=== PATIENT | male | born 1965 | race African-American/Black ===

== ENCOUNTER 2019-04-08 21:14 | Inpatient (IN) | payer MEDICARE ==
[~2019-04-08] VITALS: Ht 175.3 cm; Wt 115.7 kg
[2019-04-08] MEDS ORDERED: GLUCOPHAGE500 MG/TAB PO (21:29)
[2019-04-08] MEDS ORDERED: LASIX 20MG TABL20 MG PO (21:29)
[2019-04-08 22:05] LABS: BASO % 0.3 % (0.0-2.0); EOS # 0.1 (0.0-0.7); EOS % 0.6 % (0-4.0); GRAN % 75.2 % (42.2-75.2); HEMATOCRIT 24.8 % (42.0-52.0); LYMPH # 1.6 (1.2-3.4); LYMPH % 17.3 % (20.0-51.0); MEAN CELL VOLUME 84 fl (80.0-100.0); MEAN CORPUSCULAR HEMOGLOBIN 27 pg (27.0-31.0); MEAN CORPUSCULAR HGB CONC 32 g/dl (33.0-37.0); MEAN PLATELET VOLUME 9.1 fl (7.4-10.4); MONO # 0.6 (0.1-0.6); PLATELET COUNT 408 K/mm3 (130-400); RED BLOOD COUNT 2.97 M/mm3 (4.20-5.60); REDCELL DISTRIBUTION WIDTH-CV 17.3 % (11.5-14.5)
[2019-04-08 22:07] LABS: ARTERIAL BLOOD GAS BASE EXCESS -6.6 (-2-2); ARTERIAL BLOOD GAS HCO3 17.2 meq/L (22-26); ARTERIAL BLOOD GAS PCO2 28.3 mmHg (35-45); ARTERIAL BLOOD GAS PO2 59.6 mmHg (80-100)
[2019-04-08 22:08] LABS: ARTERIAL BLD GAS O2 SATURATION 87.5 % (92-100)
[2019-04-08 22:11] LABS: INR 1.1 (0.8-3.0); PROTHROMBIN TIME 13.4 SECONDS (9.7-12.8)
[2019-04-08 22:19] LABS: ALANINE AMINOTRANSFERASE 31 U/L (21-72); ALBUMIN 3.2 gm/dL (3.5-5.0); ALKALINE PHOSPHATASE 169 U/L (50-136); ANION GAP 12 mmol/L (7-16); AST,SGOT 30 U/L (15-37); BILIRUBIN,TOTAL 1.1 mg/dL (0.0-1.0); BLOOD UREA NITROGEN 67 mg/dL (9-20); C-REACTIVE PROTEIN 2.9 mg/dL (0.0-0.9); CALCIUM 7.6 mg/dL (8.4-10.2); CARBON DIOXIDE 16 mmol/L (22-30); CHLORIDE 107 mmol/L (98-107); GLUCOSE 163 mg/dL (74-106); LIPASE 41 U/L (23-300); MAGNESIUM 2.7 mg/dL (1.6-2.3); PHOSPHOROUS 6.1 mg/dL (2.5-4.5); POTASSIUM 4.9 mmol/L (3.4-5.0); SODIUM 135 mmol/L (137-145); TOTAL PROTEIN 6.8 gm/dL (6.4-8.2)
[2019-04-08 22:22] LABS: CREATININE, serum 4.41 (0.66-1.25)
[2019-04-08] MEDS ORDERED: TYLENOL 325MG325 MG PO (22:22)
[2019-04-08] MEDS ORDERED: ASPIRIN 81M81 MG/TA2 PO (22:23)
[2019-04-08] MEDS ORDERED: CULTURELLE10 Billion (22:23)
[2019-04-08] MEDS ORDERED: IRON TABLETS325 MG PO (22:24)
[2019-04-08] MEDS ORDERED: ELIQUIS 5MG PO (22:24)
[2019-04-08] MEDS ORDERED: FOLIC ACID 11 MG/TA1 PO (22:24)
[2019-04-08] MEDS ORDERED: HEPARIN SOD5000 U/ML SQ (22:25)
[2019-04-08] MEDS ORDERED: GLUCAGON EMERGEN1 M1 SQ (22:25)
[2019-04-08] MEDS ORDERED: GLUTOSE 1515 GM PO (22:25)
[2019-04-08] MEDS ORDERED: INSLANT SQ (22:26)
[2019-04-08] MEDS ORDERED: APRESOLINE50 MG PO (22:26)
[2019-04-08] MEDS ORDERED: HUMALOG100 U/ML SQ (22:27)
[2019-04-08] MEDS ORDERED: TOPROL XL 50MG50 MG PO (22:28)
[2019-04-08] MEDS ORDERED: ISORDIL 20MG20 M1 PO (22:28)
[2019-04-08] MEDS ORDERED: MULTIPLE VITAMI1 CAP PO (22:29)
[2019-04-08] MEDS ORDERED: GOOD NEIGH1200 MG/15 (22:29)
[2019-04-08 22:30] LABS: TROPONIN-I < 0.012 ng/mL (0.000-0.035)
[2019-04-08] MEDS ORDERED: MIRALAX119G PO (22:30)
[2019-04-08] MEDS ORDERED: SENNA-LAX8.6 MG PO (22:30)
[2019-04-08] MEDS ORDERED: ZOFRAN ODT4 MG PO (22:31)
[2019-04-08] MEDS ORDERED: VITAMIN C500 MG PO (22:31)
[2019-04-08] MEDS ORDERED: SILVER NITRATE TOP (22:31)
[2019-04-09] VITALS (753 sets, daily range): BP systolic 116–151; BP diastolic 78–100; PULSE 59–75; TEMP 97.8–98.2; O2SAT 80–100
--- NOTE | 2019-04-09 00:17 | NUR ---
Arrived to the unit via stretcher. Patient short of breath but does not appear to be in distress. Able to tolarate answer questions in short sentances. Called RT to bring BIPAP at this time.
[2019-04-09 00:29] LABS: COLLECTION METHOD CLEAN CATCH
--- NOTE | 2019-04-09 00:30 | NUR ---
Bilateral legs extremeley edematous with taught skin. Skin is extremely scaly and flaky. A foul odor is also noted coming from feet and legs. Some bloody drainage is noted on bed sheets under legs. Right foot is larger than the left. Skin texture is almost elephantine. Hospitalist stated could leave legs open to air. Patient denies any pain and states his legs do not cause him any discomfort.
[2019-04-09 00:45] LABS: MUCOUS Present /lpf; PH 5 (5-8); SQUAMOUS EPITHELIAL None Seen /hpf; URINE APPEARANCE Hazy; URINE BACTERIA None Seen /hpf; URINE BILIRUBIN Negative (NEGATIVE); URINE BLOOD Negative (NEGATIVE); URINE COLOR Yellow; URINE GLUCOSE 1+ (NEGATIVE); URINE KETONE Negative (NEGATIVE); URINE LEUKOCYTE ESTERASE Negative (NEGATIVE); URINE NITRATE Negative (NEGATIVE); URINE PROTEIN(semi-quant) 3+ (NEGATIVE); URINE RBC 0-2 /hpf; URINE UROBILINOGEN Negative (NEGATIVE)
[2019-04-09] MEDS ORDERED: LOPRESSOR 550 MG/TAB PO (01:02)
[2019-04-09] MEDS ORDERED: NORVASC 5MG5 MG/TAB PO (01:03)
[2019-04-09] MEDS ORDERED: LASIX 80MG TABL80 MG PO (01:04)
[2019-04-09] MEDS ORDERED: PRINIVIL40 MG PO (01:05)
[2019-04-09] MEDS ORDERED: NEURONTIN300 MG/CAP PO (01:06)
[2019-04-09 03:25] LABS: ARTERIAL BLD GAS O2 SATURATION 96.3 % (92-100); ARTERIAL BLOOD GAS BASE EXCESS -8.1 (-2-2); ARTERIAL BLOOD GAS HCO3 16.9 meq/L (22-26); ARTERIAL BLOOD GAS PCO2 32.6 mmHg (35-45); ARTERIAL BLOOD GAS pH 7.33 (7.35-7.45)
--- NOTE | 2019-04-09 04:10 | NUR ---
Tolerating BIPAP well; sleeps between disturbances. Denies any pain at this time. Will continue to monitor.
[2019-04-09 07:44] LABS: ARTERIAL BLOOD GAS PCO2 32.9 mmHg (35-45); ARTERIAL BLOOD GAS pH 7.36 (7.35-7.45)
[2019-04-09 07:45] LABS: ARTERIAL BLD GAS O2 SATURATION 96.2 % (92-100); ARTERIAL BLOOD GAS BASE EXCESS -6.4 (-2-2); ARTERIAL BLOOD GAS HCO3 18.3 meq/L (22-26); ARTERIAL BLOOD GAS PO2 93.8 mmHg (80-100)
--- NOTE | 2019-04-09 07:45 | NUR ---
Bedside report recieved from KAYLEE Mercedes. Patient sleeping with BiPap in place. Wakes to verbal stimuli. Peripheral INT IV to right shoulder uncomplicated. Joseph catheter with positive peach UO noted. Patient with BLE wounds and purulent spots of drainage x2. Bed in low and locked position, call light within reach, rails up x2. Care assumed at this time.
[2019-04-09 07:47] LABS: BASO % 0.4 % (0.0-2.0); EOS # 0.1 (0.0-0.7); EOS % 1.6 % (0-4.0); GRAN # 5.7 (1.4-6.5); GRAN % 72.1 % (42.2-75.2); LYMPH # 1.4 (1.2-3.4); LYMPH % 17.8 % (20.0-51.0); MEAN CELL VOLUME 84 fl (80.0-100.0); MEAN CORPUSCULAR HGB CONC 33 g/dl (33.0-37.0); MEAN PLATELET VOLUME 8.8 fl (7.4-10.4); MONO # 0.6 (0.1-0.6); MONO % 7.6 % (1.7-9.3); PLATELET COUNT 363 K/mm3 (130-400); RED BLOOD COUNT 2.72 M/mm3 (4.20-5.60); REDCELL DISTRIBUTION WIDTH-CV 17.2 % (11.5-14.5)
[2019-04-09 07:50] LABS: HEMATOCRIT 22.8 % (42.0-52.0); HEMOGLOBIN 7.4 g/dl (13.5-18.0); MEAN CORPUSCULAR HEMOGLOBIN 27 pg (27.0-31.0)
[2019-04-09 07:52] LABS: CALCIUM 7.5 mg/dL (8.4-10.2); POTASSIUM 4.5 mmol/L (3.4-5.0)
[2019-04-09 07:53] LABS: CREATININE, serum 4.39 (0.66-1.25)
--- NOTE | 2019-04-09 09:40 | NUR ---
Dr. Teresa notified of consult.
--- NOTE | 2019-04-09 09:45 | NUR ---
Dr. Zhang rounds at this time. Orders as entered CPOE.
--- NOTE | 2019-04-09 09:56 | NUR ---
Dr. Hameed notified of consult. Labs, assessment and vitals provided as requested by . No new orders recieved.
--- NOTE | 2019-04-09 09:57 | NUR ---
Ortho paged and call back number left.
--- NOTE | 2019-04-09 10:00 | NUR ---
GAVINO Reeder returns page and is notified of ortho consult. States he will be in today.
--- NOTE | 2019-04-09 10:00 | NUR ---
Dr. Chowdhury rounds on patient at this time. Orders as entered CPOE.
--- NOTE | 2019-04-09 10:17 | NUR ---
Dr. Stauffer rounds at this time. Orders as entered CPOE.
--- NOTE | 2019-04-09 11:19 | NUR ---
GAVINO Flores rounds at this time. VORB for simple dressing to BLE for drainage management.
--- NOTE | 2019-04-09 11:25 | NUR ---
Dr. Zhang, Dr. Meza, and GAVINO Flores meet with patient, son, daughters x2 and son in law. Patient POC is discussed at length to include conservative management of suspected Charcot's foot (RLE), agressive management of CHF exacerbation and renal dysfunction. Goal to return home to [place] to follow with established orthopedic care is agreed upon by all. Will continue to monitor.
--- NOTE | 2019-04-09 13:24 | NUR ---
Right shoulder peripheral IV infiltrates at start of IV ABX as charted in JAN. ABX stopped and disconnected. IV removed.
[2019-04-10] VITALS (459 sets, daily range): BP systolic 96–135; BP diastolic 66–89; PULSE 58–75; TEMP 97.4–98.5; O2SAT 56–100
[2019-04-10 05:26] LABS: BASO % 0.2 % (0.0-2.0); EOS # 0.2 (0.0-0.7); EOS % 2.3 % (0-4.0); GRAN # 6.4 (1.4-6.5); LYMPH # 1.1 (1.2-3.4); LYMPH % 13.4 % (20.0-51.0); MEAN CELL VOLUME 86 fl (80.0-100.0); MEAN CORPUSCULAR HGB CONC 31 g/dl (33.0-37.0); MEAN PLATELET VOLUME 8.6 fl (7.4-10.4); MONO # 0.6 (0.1-0.6); MONO % 6.6 % (1.7-9.3); PLATELET COUNT 342 K/mm3 (130-400); RED BLOOD COUNT 2.43 M/mm3 (4.20-5.60); REDCELL DISTRIBUTION WIDTH-CV 17.1 % (11.5-14.5)
[2019-04-10 05:30] LABS: HEMOGLOBIN 6.5 g/dl (13.5-18.0); MEAN CORPUSCULAR HEMOGLOBIN 27 pg (27.0-31.0)
--- NOTE | 2019-04-10 05:35 | NUR ---
CRITICAL LAB OF [facility] 6.5 REPORTED TO [facility].
[2019-04-10 05:38] LABS: CALCIUM 7.2 mg/dL (8.4-10.2); CHOLESTEROL RISK RATIO 4.5; POTASSIUM 4.3 mmol/L (3.4-5.0)
[2019-04-10 05:39] LABS: CREATININE, serum 4.64 (0.66-1.25)
[2019-04-10 05:48] LABS: IRON,SERUM 18 ug/dL (35-150)
[2019-04-10 05:57] LABS: TOTAL IRON BINDING CAPACITY 238 ug/dL (261-462)
[2019-04-10 06:24] LABS: FERRITIN 112 ng/mL (18-464)
--- NOTE | 2019-04-10 06:51 | NUR ---
0500 - DRESSING CHANGED ON RLE, 3 OPEN WOUNDS NOTED WITH PUS-LIKE FLUID COMING OUT. CLEANSED WITH STERILE WATER AND WRAP WITH GAUZE AND KERLIX. NOW CDI.
[2019-04-10 08:00] LABS: TOTAL PROTEIN 5.8 gm/dL (6.4-8.2)
--- NOTE | 2019-04-10 08:00 | NUR ---
Shift assessment complete at this time. Plan of care reviewed at bedside with patient. Additional time taken to address any other needs or concerns. Pt denies pain or any other discomfort. Vitals stable at this time as well. Bed in low position, call light within reach, will continue to monitor.
[2019-04-10 08:55] LABS: INR 1.2 (0.8-3.0); PROTHROMBIN TIME 13.7 SECONDS (9.7-12.8)
--- NOTE | 2019-04-10 10:00 | NUR ---
I/O documented pleural output was from bedside thoracentesis.
--- NOTE | 2019-04-10 10:14 | NUR ---
SW attended clinical rounds to discuss discharge planning. Patient is visiting from [place] to attend his daughter's wedding. Patient normally lives independenlty at home in [place]. Patient's PCP and preferred pharmacy are also in [place]. Patient reports he regularly fills his medications and takes them as prescribed. Patient uses a cane for ambulation but no other DME is reported. Patient reports he does not use home health services. Patient does have a DPOA. SW does not anticipate any discharge needs but will follow as needed.
[2019-04-10 10:19] LABS: PLEURAL FLUID APPEARANCE CLEAR; PLEURAL FLUID COLOR YELLOW
[2019-04-10 10:32] LABS: GLUCOSE,PLEURAL FLUID 108 mg/dL; PLEURAL FLUID RBC 3000 /mm3 (0-0); PLEURAL FLUID WBC 387 /mm3
[2019-04-10 10:33] LABS: TOTAL PROTEIN,PLEURAL FLUID < 2.0 gm/dL
--- NOTE | 2019-04-10 13:20 | NUR ---
Pt transferred up to Medical bed 305 from ICU bed 4. Pt transferred on oxygen support of 2L and by bed. Pt tolerated transfer well with no complaints or concerns raised to nursing staff.
--- NOTE | 2019-04-10 13:30 | NUR ---
Pt arrived to room 305 at this time. He is a pleasant A/O x3 gentleman. His breathing is even and unlabored on 2L O2 via NC. Pt denies SOB. Fine crackles to BLL and diminished sounds throughout. No pain at this time. Pt reports that he does have feeling to BLE. Both shins wrapped, small amount of drainage to RLE. 3+ edema BLE and crusting. HR regular, no murmur noted. +BS, abdomen soft and nontender. Joseph DD, clear yellow urine. First unit of blood completing at this time. Pt tolerating transfusion without complications. Pt denies needs at this time. Call light within reach. Isolation precautions in place. Will continue to monitor.
[2019-04-10 14:43] LABS: URINE PROTEIN:CREAT RATIO 8.48 (0.00-0.14)
--- NOTE | 2019-04-10 16:45 | NUR ---
Dressing to RLE changed, small amount of bloody/yellow drainage on prior dressing. 4X4 and kirlex applied, pt tolerated well. He denies any pain. No needs at this time. Call light within reach.
[2019-04-10 19:48] LABS: COMPLEMENT-C3 99 mg/dL (79-152); COMPLEMENT-C4 32 mg/dL (18-55)
--- NOTE | 2019-04-10 22:18 | NUR ---
Alert and oriented x 4 and able to make needs known. Denies having pain and discomfort. Double lumen PICC to RUE. Each lumen flushed with NS per protocol without any problems. Dressing to area is CDI. Site is without redness, warmth, swelling,a nd pain. APRIL to RUE. LS Coarse in upper lobes, diminished in lower lobes. Denies SOB and dyspnea, except with exertion. Denies cough. Wears oxygen at 4 L/min via NC. Has BIPAP on at this time. HRR. BSAx4. Indwelling valdez catheter is patient, and draining clear yellow urine via dependent drainage. 4+ edema to BLE. Dressings to wounds on BLE are CDI. Scaling/flaking to bilateral feet. Resting in bed watching TV at this time. Son at bedside at this time. Voices no needs or concerns. Call light is within reach.
[2019-04-11] VITALS (12 sets, daily range): BP systolic 115–152; BP diastolic 7–70; PULSE 65–79; TEMP 97.4–98.4
--- NOTE | 2019-04-11 03:33 | NUR ---
Continues to wear BIPAP at night. Denies having pain, discomfort, SOB, and dyspnea. Received ABXs per orders to PICC to RUE. Nitro paste to right chest. Dressings to BLE continue to be CDI. Resting in bed with eyes closed at this time. Call light is within reach.
[2019-04-11 05:54] LABS: BASO % 0.3 % (0.0-2.0); EOS # 0.2 (0.0-0.7); EOS % 2.7 % (0-4.0); GRAN % 77.3 % (42.2-75.2); LYMPH % 12.2 % (20.0-51.0); MEAN CELL VOLUME 87 fl (80.0-100.0); MEAN CORPUSCULAR HGB CONC 31 g/dl (33.0-37.0); MEAN PLATELET VOLUME 8.8 fl (7.4-10.4); MONO # 0.6 (0.1-0.6); MONO % 7.1 % (1.7-9.3); PLATELET COUNT 326 K/mm3 (130-400); RED BLOOD COUNT 2.46 M/mm3 (4.20-5.60); REDCELL DISTRIBUTION WIDTH-CV 16.7 % (11.5-14.5)
[2019-04-11 05:57] LABS: HEMATOCRIT 21.4 % (42.0-52.0); HEMOGLOBIN 6.6 g/dl (13.5-18.0); MEAN CORPUSCULAR HEMOGLOBIN 27 pg (27.0-31.0)
[2019-04-11 06:05] LABS: CALCIUM 6.9 mg/dL (8.4-10.2); POTASSIUM 3.8 mmol/L (3.4-5.0)
[2019-04-11 06:07] LABS: CREATININE, serum 4.8 (0.66-1.25)
--- NOTE | 2019-04-11 06:18 | NUR ---
Patient's hemoglobin 6.6. Called to nurse practioner at 0600. New order received to check hemoccult and 1 unit of blood was ordered. Orders put in by [employer]IAISON.
--- NOTE | 2019-04-11 06:59 | NUR ---
Report given to first shift nurse.
--- NOTE | 2019-04-11 08:10 | NUR ---
FIRST UNIT PRBC STARTED. CONSENT SIGNED AND ON CHART. WILL REMAIN AT BEDSIDE FOR FIRST 15 MIN. INFUSION RATE STARTED AT 60ML/HR. INCREASED O2 TO 3L/NC DUE TO SATS IN UPPER 80'S.
--- NOTE | 2019-04-11 11:06 | NUR ---
Blood complete at this time. Pt tolerated transfusion without any issues. VSS. Pt able to have a large light brown BM. Pt denies any needs at this time. Call light within reach.
--- NOTE | 2019-04-11 12:17 | NUR ---
PT AWAKENED AFTER BEING ON BI-PAP AT NIGHT. DENIES ANY C/O. SKIN VERY DRY AND SCALY. RLE APPEARS NECROTIC BELOW KNEE TO TOES. OPEN ULCER ON HERNADEZ AREA X2. DRAINING SMALL AMOUNT. DRESSING INTACT WITH SMALL DRAINAGE NOTED. LLE WITH DRESSING INTACT. SEVERAL FLUID FILLED BLISTERS THAT ARE NOT OPEN. TOPETE DRAINING CLEAR, YELLOW URINE. O2 ON AT 2L/NC WITH SATS IN UPPER 80'S TO 90-91.
[2019-04-11 15:41] LABS: BASO % 0.3 % (0.0-2.0); EOS # 0.2 (0.0-0.7); EOS % 1.7 % (0-4.0); GRAN # 7.3 (1.4-6.5); GRAN % 80.1 % (42.2-75.2); LYMPH % 10.5 % (20.0-51.0); MEAN CELL VOLUME 86 fl (80.0-100.0); MEAN CORPUSCULAR HGB CONC 32 g/dl (33.0-37.0); MEAN PLATELET VOLUME 8.3 fl (7.4-10.4); MONO # 0.6 (0.1-0.6); PLATELET COUNT 287 K/mm3 (130-400); REDCELL DISTRIBUTION WIDTH-CV 16.7 % (11.5-14.5)
[2019-04-11 15:43] LABS: HEMATOCRIT 23.3 % (42.0-52.0); HEMOGLOBIN 7.4 g/dl (13.5-18.0); MEAN CORPUSCULAR HEMOGLOBIN 27 pg (27.0-31.0)
--- NOTE | 2019-04-11 17:44 | NUR ---
Pt states he is feeling "whoozy". O2 sat 90% on 2L O2 via NC, increased to 3L for patient comfort will continue to monitor.
--- NOTE | 2019-04-11 20:57 | NUR ---
Patient assessed around 192. Complained of level 7 pain to catheter insertion site. Perineal hygiene care and catheter care provided. Given PRN APAP as requested. Double lumen PICC to RUE. Both lumens flushed and are patent. Site is without redness, warmth, swelling, and pain. Dressing to are is CDI. APRIL wrap to site. LS CTA in upper lobes, diminished in lower lobes. Denies SOB and dyspnea. On oxygen at 3 L/min via NC. No cough and denies cough. HRR. BSAx4. 3+ edema BLE. Dressings to BLE are CDI. Scaling/flaking to BLE. Indwelling valdez cathter is patent, and draining clear yellow urine via dependent drainage. Denies having any needs, questions, or concerns at this time. Resting in bed with eyes closed at this time. Call light is within reach.
[2019-04-12 03:37] VITALS: BP 129/73; PULSE 70; TEMP 97.6
--- NOTE | 2019-04-12 04:44 | NUR ---
Patient has denied having pain and discomfort since beginning of shift after receiving APAP. Voices no needs, questions, or concerns. Continues to wears BIPAP during the night. Resting in bed with eyes closed at this time. Call light is within reach.
[2019-04-12 06:06] LABS: BASO % 0.3 % (0.0-2.0); EOS # 0.2 (0.0-0.7); EOS % 1.9 % (0-4.0); GRAN # 8.6 (1.4-6.5); GRAN % 82.1 % (42.2-75.2); LYMPH # 0.9 (1.2-3.4); LYMPH % 8.2 % (20.0-51.0); MEAN CELL VOLUME 86 fl (80.0-100.0); MEAN CORPUSCULAR HGB CONC 32 g/dl (33.0-37.0); MONO # 0.7 (0.1-0.6); MONO % 6.8 % (1.7-9.3); PLATELET COUNT 334 K/mm3 (130-400); RED BLOOD COUNT 2.81 M/mm3 (4.20-5.60); REDCELL DISTRIBUTION WIDTH-CV 16.6 % (11.5-14.5)
[2019-04-12 06:07] LABS: HEMATOCRIT 24.2 % (42.0-52.0); HEMOGLOBIN 7.7 g/dl (13.5-18.0); MEAN CORPUSCULAR HEMOGLOBIN 27 pg (27.0-31.0)
[2019-04-12 06:16] LABS: CALCIUM 7.3 mg/dL (8.4-10.2); POTASSIUM 3.8 mmol/L (3.4-5.0)
[2019-04-12 06:22] LABS: CREATININE, serum 4.55 (0.66-1.25)
[2019-04-12 07:17] VITALS: BP 138/81; PULSE 71; TEMP 97.6
--- NOTE | 2019-04-12 07:26 | NUR ---
Report given to day shift nurse.
--- NOTE | 2019-04-12 08:45 | NUR ---
Pt alert and oriented. Pt was sleeping with bipap without issue. Pt switches over to nasal cannula during the day. Pt BLE remain edematous and crusted and flaking. Pt RLE has moderate creamy drainage noted and dressing changed with 4x4 and kerlix. Pt denies pain. Pt has call light in reach and am assessment completed. Right upper PICC intact and blood return noted and red/purple ports flushed without issue. Pt valdez intact and patent with clear yellow urine noted.
[2019-04-12 12:17] VITALS: BP 155/69; PULSE 78; TEMP 98.4
[2019-04-12 14:46] VITALS: BP 162/74; PULSE 71; TEMP 98.5
--- NOTE | 2019-04-12 16:08 | NUR ---
SW met with the patient to review discharge plan. The patient reports that he will probably stay at his daughters home upon discharge for a couple of days before returning back to [place], [place]. He states that him and his son, Colten, drove down here and that his son would drive back. SW to continue to follow.
--- NOTE | 2019-04-12 17:04 | NUR ---
Pt stable this afternoon. Pt alert and oriented. Pt denies pain. Pt valdez patent with clear yellow output. Pt remains on nasal cannula at 5L and saturation in low 90's. Pt denies WOB at rest or dizziness or headache. Pt has call light in reach and BLE remain edematous and RLE changed x2 this shift d/t drainage.
[2019-04-12 18:59] VITALS: BP 150/75; PULSE 83; TEMP 98.4
--- NOTE | 2019-04-12 19:25 | NUR ---
Pt Report given to Felicia PAGE.
--- NOTE | 2019-04-12 20:36 | NUR ---
Patient resting in bed, talking on phone. Assessment completed, VSS, afebrile, denies pain. Planning to change bilateral lower extremity wounds later this evening. Evening medications administered. No further needs at this time.
[2019-04-12 23:52] VITALS: BP 137/67; PULSE 62; TEMP 98.1
[2019-04-13 03:14] VITALS: BP 138/73; PULSE 71; TEMP 99.2
--- NOTE | 2019-04-13 05:11 | NUR ---
Pt slept most of the night, wore BIPAP. IV antibiotics administered. No needs at this time.
--- NOTE | 2019-04-13 05:55 | NUR ---
Dressing changes completed on bilateral lower extremities. 4x4's and kerlix gauze applied.
[2019-04-13 06:04] LABS: BASO % 0.3 % (0.0-2.0); EOS # 0.3 (0.0-0.7); EOS % 2.3 % (0-4.0); GRAN # 8.9 (1.4-6.5); GRAN % 82.8 % (42.2-75.2); LYMPH # 0.9 (1.2-3.4); LYMPH % 8.1 % (20.0-51.0); MEAN CELL VOLUME 87 fl (80.0-100.0); MEAN CORPUSCULAR HGB CONC 31 g/dl (33.0-37.0); MEAN PLATELET VOLUME 8.7 fl (7.4-10.4); MONO # 0.7 (0.1-0.6); MONO % 6.1 % (1.7-9.3); PLATELET COUNT 302 K/mm3 (130-400); RED BLOOD COUNT 2.73 M/mm3 (4.20-5.60); REDCELL DISTRIBUTION WIDTH-CV 16.7 % (11.5-14.5)
[2019-04-13 06:07] LABS: HEMATOCRIT 23.8 % (42.0-52.0); HEMOGLOBIN 7.4 g/dl (13.5-18.0); MEAN CORPUSCULAR HEMOGLOBIN 27 pg (27.0-31.0)
[2019-04-13 06:31] LABS: CALCIUM 7.6 mg/dL (8.4-10.2); POTASSIUM 3.9 mmol/L (3.4-5.0)
[2019-04-13 06:32] LABS: CREATININE, serum 4.61 (0.66-1.25)
[2019-04-13 08:27] VITALS: BP 146/77; PULSE 73; TEMP 98.5
--- NOTE | 2019-04-13 10:22 | NUR ---
PT RESTING IN BED WITH BI-PAP ON. REMOVED AND 02 ON PER NC PER PT AT 4L. SATS RECHECKED AFTER ON FOR 5 MIN AT 96%. DENIES ANY PAIN. PICC INTACT IN R UPPER ARM WITH NO S/S OF INFILTRATION. CONTINUES IN CONTACT ISOLATION. DRESSINGS DRY & INTACT TO BILAT LOWER EXT. RLE REMAINS NECROTIC. WILL CONTINUE TO MONITOR.
[2019-04-13 11:13] VITALS: BP 149/78; PULSE 75; TEMP 98.3
--- NOTE | 2019-04-13 11:42 | NUR ---
PT'S SON AT BEDSIDE. SATS AT 87% ON 4L/NC. 02 INCREASED TO 5L/NC WITH SATS INCREASING SLOWLY TO 90-91%. O2 REMAINS AT 5L/NC. OT IN ROOM TO EVAL PT.
--- NOTE | 2019-04-13 13:48 | NUR ---
Dressing changed to RLE. Large amount of serosanguineous drainage. Open wounds x3. Small open area to mid peck, quarter size open wound just above ankle draining some greenish drainage and the third open area just distal of previous wound. Foul odor noted. Covered with telfa x2 and then 4x4's and secured with curlex x2. Denies pain. Pt did take 2 tylenol after working with PT/OT for valdez cath discomfort. Request and given warm blanket. Visits on phone to friends/family from [place].
--- NOTE | 2019-04-13 14:58 | NUR ---
SW met with the patient to discuss therapies recommendation of post-acute rehab and to to talk about [facility]. The patient reports that he is really wanting to return back to [place]. SW discussed getting the patient set up with post-acute rehab in [place]. The patient reports that he had home health in the past and that he would prefer home health. He could not recall what the name of the agency was, but states that his PCP, Dr. Bethany Schmitt, set him up with it and that he would prefer that agency again. ROBERTO contacted the patient's PCP office (ph#[phone]) and they informed SW that the name of the agency is [facility]. ROBERTO then met with the patient and patient's son, Colten, to confirm agency. The patient and patient's son report that they would like to pursue with [facility]. The patient's son is supportive of the patient returning back home to [place]. He states that he is leaving [facility] to return back to him home in [place], [place] to pay his rent. The patient's son reports that his sister, Rosemary, plans to sweet pickle maker the patient upon discharge and that he will then meet them prison. The patient's son will then transport him the rest of the way home. ROBERTO contacted and faxed a referral to Olya at [facility] (ph#[phone] f#[phone]). SW awaiting their screening.
[2019-04-13 16:05] VITALS: BP 158/62; PULSE 83; TEMP 98.4
--- NOTE | 2019-04-13 18:18 | NUR ---
Pt worked with PT and OT today. Son has left this afternoon to return to [place] and daughter Rosemary will be his contact. Info put on chart. Still not able to decrease O2, remains at 5L/NC. Dressing changed with large amount drainage. Foul odor. PICC line remains intact in R upper arm. Wears bipap at night.
[2019-04-13 19:12] VITALS: BP 153/79; PULSE 85; TEMP 98.6
--- NOTE | 2019-04-13 19:55 | NUR ---
Patient resting in bed, assessment completed, VSS, afebrile, deniespain. Given evening medications. Joseph catheter in place, clear/yellow. Bilateral wounds covered with dressings, will change later this shift. NO further needs at this clarence.e
[2019-04-14] VITALS (244 sets, daily range): BP systolic 136–157; BP diastolic 68–84; PULSE 73–94; TEMP 98.4–99.4; O2SAT 92–100
--- NOTE | 2019-04-14 05:15 | NUR ---
Pt slept for most of the shift, no reports of pain, vss, afebrile. NO needs at this time.
--- NOTE | 2019-04-14 05:43 | NUR ---
Dressing change to right lower extremity. 4x4 and kerlix applied.
[2019-04-14 06:04] LABS: BASO % 0.3 % (0.0-2.0); EOS # 0.3 (0.0-0.7); EOS % 2.8 % (0-4.0); GRAN # 8.5 (1.4-6.5); GRAN % 81.3 % (42.2-75.2); HEMATOCRIT 24.7 % (42.0-52.0); HEMOGLOBIN 7.7 g/dl (13.5-18.0); LYMPH % 9.2 % (20.0-51.0); MEAN CELL VOLUME 87 fl (80.0-100.0); MEAN CORPUSCULAR HEMOGLOBIN 27 pg (27.0-31.0); MEAN CORPUSCULAR HGB CONC 31 g/dl (33.0-37.0); MEAN PLATELET VOLUME 8.7 fl (7.4-10.4); MONO # 0.6 (0.1-0.6); MONO % 5.9 % (1.7-9.3); PLATELET COUNT 297 K/mm3 (130-400); RED BLOOD COUNT 2.84 M/mm3 (4.20-5.60); REDCELL DISTRIBUTION WIDTH-CV 16.7 % (11.5-14.5)
[2019-04-14 06:14] LABS: CALCIUM 7.8 mg/dL (8.4-10.2); CREATININE, serum 4.4 (0.66-1.25)
--- NOTE | 2019-04-14 07:10 | NUR ---
report given to morenita kelley.
--- NOTE | 2019-04-14 11:04 | NUR ---
Assessment complete.patient awake,a/ox3.denies pain or discomfort at this time.pt desats with exertion.Lorene reports patient O2 dropped to 70s at one point.oxygen increased to 10L.patient sats are 92% at this time.3+ pitting edema to bilat lower extremity.pt has a chronic leg wound to bilat lower extremities.wound is draning.dressing intact.feet elevated.patient has valdez which is draining adequately.no other needs voiced at this time.will continue to monitor.call light in reach
[2019-04-14 12:18] LABS: ARTERIAL BLD GAS O2 SATURATION 86.6 % (92-100); ARTERIAL BLD GAS TCO2 CT 21.5; ARTERIAL BLOOD GAS BASE EXCESS -4.7 (-2-2); ARTERIAL BLOOD GAS HCO3 20.3 meq/L (22-26); ARTERIAL BLOOD GAS PCO2 37.1 mmHg (35-45); ARTERIAL BLOOD GAS PO2 55.5 mmHg (80-100); ARTERIAL BLOOD GAS pH 7.36 (7.35-7.45)
--- NOTE | 2019-04-14 12:43 | NUR ---
THIS NURSE CHECKED PATIENT'S OS PER REQUEST AND SATS WERE 88 AND DROPPED TO 85% ON 10l/NC.RT CALLED AND HIGH FLOW NASAL CANNULA CONNECTED BUT NO IMPROVEMENT IN OXYGEN SATURATION.THIS RN PUT PT ON BIPAP AND SATS IMPROVED TO 93%. NOTIFIED.WILL CONTINUE TO MONITOR.
--- NOTE | 2019-04-14 13:28 | NUR ---
PT SWITCH TO HIGH FLOW NASAL CANNULA AT THIS TIME AND STATS ARE 94% ON 12L.PT TO BE TAKEN OFF THE FLOOR FOR A VQ SCAN.
--- NOTE | 2019-04-14 15:40 | NUR ---
PT RETURN TO ROOM AT THIS TIME.PT REQUIRING MORE OXYGEN. TO TRANSFER PATIENT TO [facility].NO OTHER NEEDS VOICED AT THIS TIME.WILL CONTINUE TO MONITOR.CALL LIGHT IN REACH
[2019-04-14 16:31] LABS: PARTIAL THROMBOPLASTIN TIME 37.7 SECONDS (26.0-37.0)
--- NOTE | 2019-04-14 16:51 | NUR ---
REPORT RECEIVED FROM SCOTT PAGE.
--- NOTE | 2019-04-14 17:00 | NUR ---
PT TRANSPORTED TO ICU ROOM 6 VIA BED BY SCOTT PAGE AND KIARRA WHITE. PT AWAKE, ALERT AND ORIENTED. PT ABLE TO ROLL HIMSELF TO ICU BED WITH SOME DYSPNEA NOTED. PT O2 INCREASED TO 15L BY SCOTT PAGE DURING TRANSFER, PT'S O2 SAT 97%. O2 DECREASED BY TO 10L NC. O2 SAT NOW 94%. ASSESSMENT PERFORMED. VS OBTAINED.
--- NOTE | 2019-04-14 17:33 | NUR ---
REPORT GIVEN TO TAMIKO PAGE.
--- NOTE | 2019-04-14 17:34 | NUR ---
PT TRANSPORTED TO ICU 6 BY THIS RN AND ELOY WHITE.PATIENT OXYGEN INCREASED TO 15L ON TRANSPORT.PATIENT TRANSFERED TO BED IN ICU.NO OTHER NEEDS VOICED AT THIS TIME.
--- NOTE | 2019-04-14 18:04 | NUR ---
The patient's nurse informed ROBERTO that the patient's daughter, Rosemary, would like for ROBERTO to contact her. ROBERTO then contacted Rosemary. Rosemary reports that her and her siblings would like for the patient to stay in [place] to receive post-acute rehab before returning back to [place]. She reports that they do not want for anything to happen to the patient during transportation to [place]. She states that they are interested in [facility]. ROBERTO consulted IPR Director, Carli. ROBERTO to continue to follow.
--- NOTE | 2019-04-14 19:30 | NUR ---
RECEIVED REPORT FROM KAYLEE MORRISON.
[2019-04-15] VITALS (737 sets, daily range): BP systolic 129–153; BP diastolic 65–92; PULSE 74–99; TEMP 98.6–99.8; O2SAT 92–100
[2019-04-15 05:51] LABS: MEAN CELL VOLUME 88 fl (80.0-100.0); MEAN CORPUSCULAR HGB CONC 32 g/dl (33.0-37.0); MEAN PLATELET VOLUME 8.4 fl (7.4-10.4); PLATELET COUNT 256 K/mm3 (130-400); RED BLOOD COUNT 2.62 M/mm3 (4.20-5.60); REDCELL DISTRIBUTION WIDTH-CV 16.9 % (11.5-14.5)
[2019-04-15 05:54] LABS: HEMOGLOBIN 7.3 g/dl (13.5-18.0); MEAN CORPUSCULAR HEMOGLOBIN 28 pg (27.0-31.0)
[2019-04-15 06:05] LABS: CALCIUM 7.8 mg/dL (8.4-10.2); CREATININE, serum 4.13 (0.66-1.25); POTASSIUM 4.1 mmol/L (3.4-5.0)
[2019-04-15 06:16] LABS: ANISOCYTOSIS 1+; BAND 2 % (0-10); EOSINOPHIL 1 % (0-4); HYPOCHROMIA 1+; LYMPHOCYTE 10 % (20.0-51.0); NEUTROPHILS 78 % (42.0-75.2); PLATELET ESTIMATE NORMAL (NORMAL)
[2019-04-15 06:17] LABS: OVALOCYTES 1+
--- NOTE | 2019-04-15 07:21 | NUR ---
GAVE REPORT TO KAYLEE HUSSEIN.
--- NOTE | 2019-04-15 07:29 | NUR ---
Report received from Daxa PAGE and care resumed.
[2019-04-15 10:17] LABS: ARTERIAL BLD GAS O2 SATURATION 95.5 % (92-100); ARTERIAL BLOOD GAS BASE EXCESS -4.5 (-2-2); ARTERIAL BLOOD GAS HCO3 19.9 meq/L (22-26); ARTERIAL BLOOD GAS PCO2 34.1 mmHg (35-45); ARTERIAL BLOOD GAS PO2 84.9 mmHg (80-100); ARTERIAL BLOOD GAS pH 7.39 (7.35-7.45)
--- NOTE | 2019-04-15 11:00 | NUR ---
Dr Perez in to see pt at this time.
--- NOTE | 2019-04-15 12:20 | NUR ---
Pt remains resting at this time. VSS. Denies any pain. Dr Stauffer in to see pt. Will adjust lasix dose. Will continue to follow.
--- NOTE | 2019-04-15 12:58 | NUR ---
Upon am assessment, red port of picc not flushing and purple port very sluggish. Called Dr [place] and order obtained for cathflo. Will administer per protocol.
--- NOTE | 2019-04-15 19:03 | NUR ---
Report given to Daxa PAGE and care transfered.
--- NOTE | 2019-04-15 19:14 | NUR ---
received report from morenita whittington.
[2019-04-16] VITALS (791 sets, daily range): BP systolic 136–183; BP diastolic 65–103; PULSE 75–96; TEMP 98.7–99.1; O2SAT 83–100
[2019-04-16 04:47] LABS: HEMATOCRIT 22.2 % (42.0-52.0); HEMOGLOBIN 7.1 g/dl (13.5-18.0); MEAN CELL VOLUME 87 fl (80.0-100.0); MEAN CORPUSCULAR HEMOGLOBIN 28 pg (27.0-31.0); MEAN CORPUSCULAR HGB CONC 32 g/dl (33.0-37.0); MEAN PLATELET VOLUME 8.1 fl (7.4-10.4); PLATELET COUNT 219 K/mm3 (130-400); RED BLOOD COUNT 2.54 M/mm3 (4.20-5.60); REDCELL DISTRIBUTION WIDTH-CV 16.6 % (11.5-14.5)
--- NOTE | 2019-04-16 07:11 | NUR ---
gave report to morenita whittington.
--- NOTE | 2019-04-16 07:15 | NUR ---
Report received from Daxa PAGE and care resumed.
[2019-04-16 08:11] LABS: CALCIUM 7.9 mg/dL (8.4-10.2); CREATININE, serum 3.83 (0.66-1.25); POTASSIUM 4.2 mmol/L (3.4-5.0)
--- NOTE | 2019-04-16 09:40 | NUR ---
Dr Callahan in to see pt at this time.
--- NOTE | 2019-04-16 09:45 | NUR ---
Dr [place] in to see pt at this time.
--- NOTE | 2019-04-16 09:50 | NUR ---
Dr Perez in to see pt at this time.
--- NOTE | 2019-04-16 19:21 | NUR ---
Report given to Tiffany PAGE and care transfered.
--- NOTE | 2019-04-16 19:28 | NUR ---
TX IS RUNNING INLINE. NO COMPLICATION NOTED AT THIS TIME
[2019-04-17] VITALS (755 sets, daily range): BP systolic 137–169; BP diastolic 86–112; PULSE 71–92; TEMP 98.7–99.4; O2SAT 76–100
[2019-04-17 05:17] LABS: BASO % 0.3 % (0.0-2.0); EOS # 0.2 (0.0-0.7); EOS % 1.5 % (0-4.0); GRAN # 8.4 (1.4-6.5); GRAN % 80.9 % (42.2-75.2); LYMPH # 1.1 (1.2-3.4); LYMPH % 10.3 % (20.0-51.0); MEAN CELL VOLUME 87 fl (80.0-100.0); MEAN CORPUSCULAR HGB CONC 32 g/dl (33.0-37.0); MEAN PLATELET VOLUME 8.5 fl (7.4-10.4); MONO # 0.7 (0.1-0.6); MONO % 6.6 % (1.7-9.3); PLATELET COUNT 236 K/mm3 (130-400); RED BLOOD COUNT 2.75 M/mm3 (4.20-5.60); REDCELL DISTRIBUTION WIDTH-CV 16.8 % (11.5-14.5)
[2019-04-17 05:18] LABS: HEMOGLOBIN 7.6 g/dl (13.5-18.0); MEAN CORPUSCULAR HEMOGLOBIN 28 pg (27.0-31.0)
[2019-04-17 05:31] LABS: CALCIUM 8.3 mg/dL (8.4-10.2); CREATININE, serum 3.73 (0.66-1.25); PHOSPHOROUS 5.1 mg/dL (2.5-4.5); POTASSIUM 4.1 mmol/L (3.4-5.0)
--- NOTE | 2019-04-17 07:12 | NUR ---
report home care giver to KAYLEE Fierro.
--- NOTE | 2019-04-17 08:00 | NUR ---
Shift assessment complete at this time. Additional time taken to address any other needs or concerns. Vitals stable at this time. Pt denies pain or any other discomforts. Bed in low position, call light within reach. Will continue to monitor.
--- NOTE | 2019-04-17 10:34 | NUR ---
SW met with patient about discharge plan. Patient reports he wants to go home with home health when he is able. SW reports that patient's family has voiced concerns about patient returning home. Patient reports he has a caregiver in [place] and can get home health services. Patient reports he will speak with his family about these concerns. SW will follow up with patient his afternoon.
--- NOTE | 2019-04-17 12:00 | NUR ---
Pt resting comfortably in bed. Denies pain or any other discomfort. Vitals stable at this time. Bed in low position, call light within reach. Will continue to monitor.
--- NOTE | 2019-04-17 13:20 | NUR ---
PICC intact right upper arm. With sterile technique right upper arm PICC dressing change done with insertion site cleansed with ChloraPrep 1, chlorhexidine impregnated disc applied, skin prep, StatLock, and Tegaderm applied. No signs or symptoms of IV complications noted. No concerns voiced.
--- NOTE | 2019-04-17 19:25 | NUR ---
Bedside report given to KAYLEE Allen.
--- NOTE | 2019-04-17 23:32 | NUR ---
RLE HAS 3 SMALL OPEN WOUNDS, ONE DRAINING A LITTLE BIT OF BLOOD AND 2 DRAINING PURULENT FLUID. SWEELING ALSO NOTED. DRESSING NOW CLEAN, DRY AND INTACT.
[2019-04-18] VITALS (337 sets, daily range): BP systolic 136–178; BP diastolic 53–95; PULSE 62–89; TEMP 97.8–98.8; O2SAT 82–100
[2019-04-18 05:24] LABS: BASO % 0.2 % (0.0-2.0); EOS # 0.2 (0.0-0.7); EOS % 2.1 % (0-4.0); GRAN # 7.4 (1.4-6.5); GRAN % 79.8 % (42.2-75.2); LYMPH # 0.9 (1.2-3.4); LYMPH % 9.6 % (20.0-51.0); MEAN CELL VOLUME 88 fl (80.0-100.0); MEAN CORPUSCULAR HGB CONC 32 g/dl (33.0-37.0); MEAN PLATELET VOLUME 8.4 fl (7.4-10.4); MONO # 0.7 (0.1-0.6); MONO % 7.8 % (1.7-9.3); PLATELET COUNT 222 K/mm3 (130-400); RED BLOOD COUNT 2.66 M/mm3 (4.20-5.60); REDCELL DISTRIBUTION WIDTH-CV 16.9 % (11.5-14.5)
[2019-04-18 05:30] LABS: HEMATOCRIT 23.4 % (42.0-52.0); HEMOGLOBIN 7.4 g/dl (13.5-18.0); MEAN CORPUSCULAR HEMOGLOBIN 28 pg (27.0-31.0)
[2019-04-18 05:31] LABS: CALCIUM 8.1 mg/dL (8.4-10.2); CREATININE, serum 3.75 (0.66-1.25); POTASSIUM 4.2 mmol/L (3.4-5.0)
--- NOTE | 2019-04-18 09:45 | NUR ---
BiPap/CPAP removed, nasal cannula applied at 10L/min
--- NOTE | 2019-04-18 10:15 | NUR ---
Left Sided Thoracentesis Procedure Note: Time out completed by KAYLEE Rios with MD Amado present and pt. All pt's questions invited and answered. Vital signs q3min during procedure. Pt tolerated procedure well and vital signs remained stable. Samples sent to RT for pH, and lab for pathology. After procedure complete, physical therapy here with student - pt ambulated from bed to chair slow but without difficulty. Pt now sititng up in chair on nasal cannula 10L. RT aware - will titrate down on O2. Call light in reach
[2019-04-18 11:32] LABS: PLEURAL FLUID RBC 1000 /mm3 (0-0); PLEURAL FLUID WBC 259 /mm3
--- NOTE | 2019-04-18 11:35 | NUR ---
SW met with patient about post acute rehab. Patient seems to be more agreeable to SNF but would prefer to go somewhere in [place]. SW provided medicare.gov resource list for nursing facilities in [place] as well as facilities in [place].
[2019-04-18 11:37] LABS: GLUCOSE,PLEURAL FLUID 81 mg/dL
[2019-04-18 11:38] LABS: PLEURAL FLUID APPEARANCE HAZY; PLEURAL FLUID COLOR YELLOW
[2019-04-18 11:39] LABS: TOTAL PROTEIN,PLEURAL FLUID < 2.0 gm/dL
--- NOTE | 2019-04-18 14:13 | NUR ---
Report phoned to KAYLEE Daugherty
--- NOTE | 2019-04-18 14:57 | NUR ---
Pt transfered upstairs to [facility], proper contact isolation transportation precautions followed, all benlongings with pt including boot, wheelchair and cane and cellphone.
--- NOTE | 2019-04-18 15:15 | NUR ---
Patientn up to room 307, assisted in bed, oriented to room. Denies other needs at this time. patient on contact precautions.
--- NOTE | 2019-04-18 16:00 | NUR ---
patient resting in bed. Assessment complete. BUL clear, lower lobes diminished. patient on 8L O2. Denies SOB or dizziness. Pt has bandaid over Lt side thoracentesis site. Heart RRR. Denies chest pain. ASIM PICC with blood return. Joseph in place with yellow clear urine and no complications. Radial pulses strong. Pt has BLE edema 3-4+. Rt leg wrapped with kerlex d/t chronic leg wounds/open sores from DM. Rt foot is black and hard to touch. Pulses not palpable in feet. Denies other needs at this time. Call light within reach.
--- NOTE | 2019-04-18 19:00 | NUR ---
Report given to KAYLEE Arnett. patient in bed with family at bedside. per peter "he is doing much better, sounds better and is eating better". Patient joking around with nurses and family. Patient had dinner. Denies other needs, call light within reach.
--- NOTE | 2019-04-18 21:44 | NUR ---
PT RESTING IN BED A+OX4. REPORTS NO PAIN. CPAP ON. PICC FLUSHES WELL, BLOOD RETURN NOTED. SORES ON RIGHT LEG- WRAPPED WITH GUAZE- SOME DRAINAGE NOTED. RIGHT HEEL- SMALL CLOSED SCABBED SORE. REPORTS NO SOA. PT ON 1500 FLUID RESTRICTION. REPORTS "I FEEL BETTER THAN I HAVE IN A LONG TIME" NO NEEDS AT THIS TIME. CALL LIGHT IN REACH
[2019-04-19] VITALS (12 sets, daily range): BP systolic 113–158; BP diastolic 52–78; PULSE 69–87; TEMP 97.5–98.6
--- NOTE | 2019-04-19 05:22 | NUR ---
PT HAD AN UNEVENTFUL NIGHT. PT BP >160- PRN HYDRALAZINE GIVEN- BROUGHT BP DOWN TO ACCEPTABLE RANGE. PICC FLUSHES WELL, BLOOD RETURN NOTED. RIGHT LEG IS WRAPPED- SOME DRAINAGE NOTED. BILATERAL EDEME NOTED. NO PAIN DURING NIGHT. TOPETE DRAINING INDEPENDTLY, NO KINKS. [facility] PROVIDED AT 0000. PT ON CPAP DURING NIGHT. 8 L VIA NC WHEN OFF OF CPAP. NO NEEDS A THIS TIME, CALL LIGHT IN REACH
[2019-04-19 06:02] LABS: BASO % 0.2 % (0.0-2.0); EOS # 0.2 (0.0-0.7); EOS % 2.1 % (0-4.0); GRAN # 6.9 (1.4-6.5); GRAN % 77.3 % (42.2-75.2); LYMPH # 1.1 (1.2-3.4); LYMPH % 11.9 % (20.0-51.0); MEAN CELL VOLUME 88 fl (80.0-100.0); MEAN CORPUSCULAR HGB CONC 31 g/dl (33.0-37.0); MONO # 0.7 (0.1-0.6); MONO % 8.1 % (1.7-9.3); PLATELET COUNT 213 K/mm3 (130-400); RED BLOOD COUNT 2.49 M/mm3 (4.20-5.60); REDCELL DISTRIBUTION WIDTH-CV 16.9 % (11.5-14.5)
[2019-04-19 06:17] LABS: CALCIUM 7.8 mg/dL (8.4-10.2); CREATININE, serum 3.62 (0.66-1.25); MAGNESIUM 2.4 mg/dL (1.6-2.3); POTASSIUM 4.1 mmol/L (3.4-5.0)
[2019-04-19 06:28] LABS: HEMOGLOBIN 6.8 g/dl (13.5-18.0); MEAN CORPUSCULAR HEMOGLOBIN 27 pg (27.0-31.0)
--- NOTE | 2019-04-19 07:18 | NUR ---
report given to KAYLEE christy. hemaglobin critical passed on to KAYLEE Christy - reported she will call dr. dipak randall at this time
--- NOTE | 2019-04-19 09:30 | NUR ---
Initial assessment completed. The patient tolerated the Bipap overnight. Currently on 8L/NC sitting up in the bed. No pain or needs reported this morning, other than wanting to go home. The call light is in place.
--- NOTE | 2019-04-19 13:53 | NUR ---
ROBERTO spoke with pt about support services and EMS transport to [place] from [place], [place]. SW rec quote from EMS of 8,000 and [facility] of 15,000 for the 487 miles. Patient was given informations for cost benifits. ROBERTO sent referral to [facility] in [facility] phone F: . ROBERTO is waiting to hear back for acceptance. ROBERTO spoke with pt and he stated that his children were coming up to see him in which they are going to meet on the matter. Will continue to follow for care needs.
--- NOTE | 2019-04-19 18:46 | NUR ---
Report given to KAYLEE Arnett to resume care. The patient is resting quitely in bed and the call light is in place. No other needs at this time.
--- NOTE | 2019-04-19 19:55 | NUR ---
Transfusion started at this time. Respiratory in room to place patient on bipap.
--- NOTE | 2019-04-19 21:45 | NUR ---
PT RESTING IN BED A+OX4. REPORTS NO PAIN. VSS. PT O2 SAT 89% ON 11L- RT CALLED. RT PLACED PT ON CPAP- SAT NOW AT 96%. PT BG 165- NO INSULIN NEEDED PER ORDER. PICC FLUSHES WELL, BLOOD RETURN NOTED X2. PRBC COMPLETE- VSS, NO S/S OF TRANSFUSION REACTION. TOPETE DRAINING FREELY, NO KINKS. URINE CLEAR, YELLOW. NO NEEDS AT THIS TIME. CALL LIGHT IN REACH.
[2019-04-20] VITALS (224 sets, daily range): BP systolic 103–158; BP diastolic 54–98; PULSE 65–79; TEMP 97.7–99; O2SAT 84–100
[2019-04-20 01:10] LABS: HEMATOCRIT 23.5 % (42.0-52.0); HEMOGLOBIN 7.6 g/dl (13.5-18.0)
--- NOTE | 2019-04-20 04:58 | NUR ---
PT HAD AN UNEVENTFUL NIGHT. PT REPORTED NO PAIN. PICC FLUSHES WELL, BLOOD RETURN NOTED. TOPETE DRAINING FREELY, NO KINKS. YELLOW CLEARN URINE NOTED. PT WORE BIPAP THROUGHOUT NIGHT. EARLIER IN THE NIGHT PT O2 SAT DROPPED WHILE ON NC. INCREASED O2 FROM 8L TO 12L. JOSE R PERALES NOTIFIED- ORDERED TO LEAVE BIPAP ON FOR NOW. RT NOTIFIED. ONE UNIT OF PRBC INFUSED- NO REACTION NOTED, PT TOLERATED WELL. RBC INCREASE TO 7.6- PRITI ODELL NOTIFIED- NO NEW ORDERS REGARDING RBC. PT RIGHT LEG WOUND WRAPPED, DRAINAGE NOTED. BILATERAL LEG EDEMA NOTED. NO NEEDS AT THIS TIME. CALL LIGHT IN REACH.
[2019-04-20 06:32] LABS: BASO % 0.4 % (0.0-2.0); EOS # 0.3 (0.0-0.7); GRAN # 6.4 (1.4-6.5); GRAN % 75.3 % (42.2-75.2); LYMPH # 1.1 (1.2-3.4); LYMPH % 12.5 % (20.0-51.0); MEAN CELL VOLUME 90 fl (80.0-100.0); MEAN CORPUSCULAR HGB CONC 31 g/dl (33.0-37.0); MEAN PLATELET VOLUME 9.1 fl (7.4-10.4); MONO # 0.7 (0.1-0.6); MONO % 8.4 % (1.7-9.3); PLATELET COUNT 214 K/mm3 (130-400); REDCELL DISTRIBUTION WIDTH-CV 16.7 % (11.5-14.5)
[2019-04-20 06:38] LABS: CALCIUM 7.9 mg/dL (8.4-10.2); CREATININE, serum 3.5 (0.66-1.25); POTASSIUM 4.4 mmol/L (3.4-5.0)
[2019-04-20 06:54] LABS: HEMATOCRIT 23.5 % (42.0-52.0); HEMOGLOBIN 7.2 g/dl (13.5-18.0); MEAN CORPUSCULAR HEMOGLOBIN 28 pg (27.0-31.0)
--- NOTE | 2019-04-20 07:18 | NUR ---
report given to KAYLEE Torres. pt sleeping at this time
--- NOTE | 2019-04-20 09:30 | NUR ---
Received call pt was on 87% on 10L NC. Pt sitting up on side of bed, breathing even and unlabored, denies shortness of breath. Breath sounds diminished bilaterally. Moved 02 to 12 liters and continued morning assessment. Pt is alert and oriented, moves all extremities. Heart sounds auscultated, normal, no murmer heard. Audible bowel sounds in all quadrants. +3 pitting edema to bilateral lower legs. Right leg has bandage on wound with quarter size drainage noted. Left heel has a dime size scab opened up with small amount of drainage noted. Pt O2 continues ot stay at 87% on 12 L NC. Denies any needs at this time, will follow up with hospitalist on oxygen.
[2019-04-20 09:43] LABS: INR 1.1 (0.8-3.0); PROTHROMBIN TIME 13.2 SECONDS (9.7-12.8)
--- NOTE | 2019-04-20 10:00 | NUR ---
Followed up with July FALK, she instructed me to call Dr. Fischer and she ordered a chest xray.
--- NOTE | 2019-04-20 10:15 | NUR ---
Spoke with Dr. Fischer, updated on pt condition. Dr. Fischer ordered pt to be put back on bipap and and ABG ordered for one hour after. Called repsiratory to and requested pt to be put back on bipap.
--- NOTE | 2019-04-20 10:18 | NUR ---
ROBERTO contacted [facility] to check the status of the referral. [facility] reports that she will reach out to their RN Liason and then they will contact ROBERTO. ROBERTO then met with the patient to update. The patient requested that ROBERTO contact his son or daughter. ROBERTO then contacted the patient's son, Colten ([phone]). Colten reports that he is supportive of the patient going to an LTACH. He states that he will contact the patient to talk to him about the plan. ROBERTO also requested a copy of the patient's DPOA-HC. The patient's son plans to fax his DPOA-HC to the medical unit. SW to continue to follow.
--- NOTE | 2019-04-20 10:51 | NUR ---
Pt back on bipap per respiratory. Ordered ABG for 1200.
--- NOTE | 2019-04-20 11:34 | NUR ---
The patient is transferring down to ICU. SW still awaiting a fax from the son of the patient's DPOA-HC.
--- NOTE | 2019-04-20 12:10 | NUR ---
Patient transferred to ICU 7 from third floor by bed. This RN not in room on arrival, RT only in room. Patient attached to monitor and orient to room. States "I don't know why I'm here. I was taking a nap and I woke up and here I am." Belongings accounted for and into closet. Denies needs at this time. Call light in reach.
--- NOTE | 2019-04-20 12:10 | NUR ---
Gave report on pt to Amanda PAGE in ICU.
--- NOTE | 2019-04-20 12:25 | NUR ---
Moved pt to ICU, all belongings brought with pt. Respiratory in room putting pt back on Bipap, alerted front tender that pt was in the room as Amanda PAGE was in another pt room at that time.
[2019-04-20 13:43] LABS: ARTERIAL BLD GAS O2 SATURATION 94.5 % (92-100); ARTERIAL BLD GAS TCO2 CT 22.1; ARTERIAL BLOOD GAS HCO3 20.9 meq/L (22-26); ARTERIAL BLOOD GAS PCO2 37.3 mmHg (35-45); ARTERIAL BLOOD GAS pH 7.37 (7.35-7.45)
--- NOTE | 2019-04-20 14:12 | NUR ---
Dr. Wilkes at bedside for thoracentesis. Consent signed and on chart.
--- NOTE | 2019-04-20 15:04 | NUR ---
Safia, at [facility] (ph#[phone]), contacted ROBERTO to inform that she plans to contact the patient's son and set up a time tomorrow, 04/21, to meet with him and the patient. ROBERTO provided Safia with the son's phone number. ROBERTO to continue to follow.
--- NOTE | 2019-04-20 16:25 | NUR ---
Patient requests CPAP off at this time. High flow NC applied at 10L/min.
--- NOTE | 2019-04-20 17:22 | NUR ---
Sitting up in bed for evening meal. States feels much better after thoracentesis. SpO2 on 92-94% with 10L/High Flow NC. Denies needs at this time
--- NOTE | 2019-04-20 19:58 | NUR ---
Report given to Laura PAGE
[2019-04-21] VITALS (546 sets, daily range): BP systolic 118–156; BP diastolic 74–89; PULSE 59–85; TEMP 97.6–98.9; O2SAT 81–100
--- NOTE | 2019-04-21 00:11 | NUR ---
Pt resting in bed, very pleasant. C/O 5/10 pain in leg that was resolved by tylenol per pt. Denies any other discomfort. Able to get up to bedside commode with 1 person assist. One large, soft, brown BM noted. Pt states it is much easier for him to breath. VSS, lungs clear upper and dim bases. Currently on bipap and tolerating well. Will continue to monitor pt status and update providers as needed.
[2019-04-21 05:26] LABS: BASO % 0.5 % (0.0-2.0); EOS # 0.2 (0.0-0.7); EOS % 3.8 % (0-4.0); GRAN # 4.5 (1.4-6.5); GRAN % 71.4 % (42.2-75.2); LYMPH % 15.4 % (20.0-51.0); MEAN CELL VOLUME 89 fl (80.0-100.0); MEAN CORPUSCULAR HGB CONC 31 g/dl (33.0-37.0); MEAN PLATELET VOLUME 8.6 fl (7.4-10.4); MONO # 0.5 (0.1-0.6); MONO % 8.4 % (1.7-9.3); PLATELET COUNT 183 K/mm3 (130-400); RED BLOOD COUNT 2.47 M/mm3 (4.20-5.60); REDCELL DISTRIBUTION WIDTH-CV 16.6 % (11.5-14.5)
[2019-04-21 05:36] LABS: CALCIUM 7.6 mg/dL (8.4-10.2); CREATININE, serum 3.46 (0.66-1.25); MAGNESIUM 2.4 mg/dL (1.6-2.3); POTASSIUM 4.6 mmol/L (3.4-5.0)
[2019-04-21 05:38] LABS: HEMOGLOBIN 6.8 g/dl (13.5-18.0); MEAN CORPUSCULAR HEMOGLOBIN 28 pg (27.0-31.0)
--- NOTE | 2019-04-21 05:44 | NUR ---
DILEEP Paulson was called and update re: critical hbg-6.8. 1 unit PRBC's ordered. Will recheck 1 hour post transfusion.
--- NOTE | 2019-04-21 07:45 | NUR ---
Report received from KAYLEE Sanchez.
--- NOTE | 2019-04-21 08:00 | NUR ---
Assessment completed. Pt on CPAP, awake, watching tv. CPAP off and pt placed on 10L/ hiflow NC. Pt states breathing is better. Denies any pain. VSS. Discussed fluid restriction with pt. Pt verbalized understanding. Pt refuses breakfast at this time. Right lower extrem with kerlex drsg on. Old, blood drainage noted on drsg. Call light in reach. Will monitor.
--- NOTE | 2019-04-21 09:05 | NUR ---
1 unit PRBC transfusing through right upper arm PICC. VSS. Pt watching tv in bed. Denies any pain. pt finished breakfast at this time. Will monitor.
--- NOTE | 2019-04-21 10:13 | NUR ---
SPO2 88-89% on 7L/hiflow NC. Pt denies any SOB. States he just finished exercises with physical therapy. O2 increased to 10L/hiflow, Spo2 90%.
--- NOTE | 2019-04-21 10:28 | NUR ---
ROBERTO spoke to Safia from [facility]. ROBERTO reported that patient's son should be here around 1pm. Safia reports she will come visit patient and son around 2:30pm. ROBERTO will inform nurse.
--- NOTE | 2019-04-21 11:35 | NUR ---
PRBC completed without any reactions. Pt watching tv in bed. VSS. Denies any pain. Explained H/H recheck in 1 hour with pt. Pt verbalized understanding.
[2019-04-21 13:00] LABS: HEMATOCRIT 26.7 % (42.0-52.0); HEMOGLOBIN 8.5 g/dl (13.5-18.0)
--- NOTE | 2019-04-21 14:30 | NUR ---
Safia, from [facility] at bedside talking with pt and pt's family.
--- NOTE | 2019-04-21 17:25 | NUR ---
Report given to Avis medical floor RN at 1700. Pt transferred to room 307 via wheelchair and o2. Avis medical floor RN updated on pt's arrival.
--- NOTE | 2019-04-21 17:45 | NUR ---
patient up to room via wheelchair.
--- NOTE | 2019-04-21 18:28 | NUR ---
patient in room, laying in bed comfortably on 8L O2. Patient WOB increases with transfer to bed. Per ICU report, patient desats quickly. VSS at this time. Patient has dressing on RT lower extremity, changed this afternoon in ICU. No skin issues on backside. LT lower extremity skin dark, hard to touch. Patient unsteady on feet, recommend urinal. Patient denies other needs at this time. Call light within reach.
--- NOTE | 2019-04-21 21:36 | NUR ---
Resting in bed with daughters at bedside. Assessment complete. Left lower lobe diminished otherwise clear. Heart sounds normal. Bowel sounds active x4. Pulses present throughout. Weak in lower extremities. Bilateral lower leg edema +2. Thick dry skin present on lower extremities. Right lower leg ulcer-covered with dressing, CDI. Reports "mild back pain." Assisted to comfortable position. Oxygen saturation on 9 liters 86%. Slowly increased over 15 mintues to 12 liters, oxygen saturation 94%. Respiratory notified for bipap set up. Was able to decreased oxygen to 10 liters, saturation at 92%. Respiratory now in room to apply bipap. Patient denies other needs at this time. Will monitor.
[2019-04-22] VITALS (7 sets, daily range): BP systolic 128–156; BP diastolic 45–81; PULSE 62–82; TEMP 97.7–98.9
--- NOTE | 2019-04-22 00:05 | NUR ---
Resting in bed. Denies needs. Call light in reach.
--- NOTE | 2019-04-22 03:47 | NUR ---
Resting in bed. Cpap on. Denies needs. Denies pain. Call light in reach.
--- NOTE | 2019-04-22 06:22 | NUR ---
Patient remained on 10 liters of oxygen throughout night with cpap applied. Oxygen saturation 100% this AM on cpap. Otherwise uneventful night. Denies need this morning. Call light in reach.
[2019-04-22 06:38] LABS: BASO % 0.4 % (0.0-2.0); EOS # 0.3 (0.0-0.7); EOS % 3.6 % (0-4.0); GRAN # 5.3 (1.4-6.5); GRAN % 74.8 % (42.2-75.2); LYMPH % 13.6 % (20.0-51.0); MEAN CELL VOLUME 89 fl (80.0-100.0); MEAN CORPUSCULAR HGB CONC 31 g/dl (33.0-37.0); MEAN PLATELET VOLUME 8.8 fl (7.4-10.4); MONO # 0.5 (0.1-0.6); MONO % 7.3 % (1.7-9.3); PLATELET COUNT 194 K/mm3 (130-400); RED BLOOD COUNT 2.76 M/mm3 (4.20-5.60); REDCELL DISTRIBUTION WIDTH-CV 16.5 % (11.5-14.5)
[2019-04-22 06:46] LABS: HEMATOCRIT 24.6 % (42.0-52.0); HEMOGLOBIN 7.7 g/dl (13.5-18.0); MEAN CORPUSCULAR HEMOGLOBIN 28 pg (27.0-31.0)
[2019-04-22 06:52] LABS: CALCIUM 7.8 mg/dL (8.4-10.2); CREATININE, serum 3.38 (0.66-1.25); MAGNESIUM 2.4 mg/dL (1.6-2.3); POTASSIUM 4.6 mmol/L (3.4-5.0)
--- NOTE | 2019-04-22 07:28 | NUR ---
Report given to KAYLEE Mckeon
--- NOTE | 2019-04-22 07:42 | NUR ---
Resting in bed at this time. The BiPap in place. No pain or needs reported. The call light is in place.
--- NOTE | 2019-04-22 13:37 | NUR ---
Resting in bed at this time. No pain or needs reported the call light is in place.
--- NOTE | 2019-04-22 18:25 | NUR ---
Dressing changed to the right lower ext. The patient has multiple small open wounds with a scant amount of drainage. No pain during dressing change. Non-adherent dressing and kerlex in place.
--- NOTE | 2019-04-22 19:35 | NUR ---
Report given to KAYLEE Tinoco to resume care.
--- NOTE | 2019-04-22 20:32 | NUR ---
1929 Recieved report from KAYLEE Mckeon. Patient sitting at bedside. Oxygen saturation 78% on 10 liters. Increased to 13 liters and instructed to appropriately breathing techniques. Increased to 92%. Assessment completed at this time. Patient left lobe lung sounds absent, right lower lobe crackles, bilateral upper lobes clear. Heart sounds normal. Bowels active x4. Pulses present throughout, weak in lower extremities. Lower extremity edema +2. Right lower leg wound covered with clean and dry dressing. Thick dry skin present on bilateral lower legs. Patient emotional regarding increased oxygen needs. Would like to finish eating dinner and take night medications prior to returning to bed. Closely monitored during this time. Patient remained alert and orientated with mild shortness of breath during this time. 1944 Patient assisted back to bed, 71% on 13 liters while moving. Respiratory in room assisting with patient. CPAP applied. Breathing treatment administered by respiratory. Current 96%. 1954 Notifed Candis of absent lung sounds and increased oxygen requirements. Respiratory requesting to place patient on bipap with settings 18 over 8 with 16 respirations. Okay per Candis to do so. Ordered chest xray at this time. 2014 Chest xray completed. Patient 97% on bipap at this time. 2030 Candis in room to see patient. No new orders.
--- NOTE | 2019-04-23 00:50 | NUR ---
Rating headache pain 5/10. Provided with PRN tylenol at this time.
[2019-04-23 03:46] VITALS: BP 138/71; PULSE 70; TEMP 98.2
--- NOTE | 2019-04-23 06:39 | NUR ---
Report given to given to KAYLEE Mckeon. Patient had uneventful night after bipap applied. Resting in bed this AM
--- NOTE | 2019-04-23 06:41 | NUR ---
Sleeping with the bipap in place. The call light is in place. Recieved report from KAYLEE Tinoco.
--- NOTE | 2019-04-23 08:15 | NUR ---
FOUND PT ON BIPAP 25/06 BACKUP RR 16 FIO2 45%. RR 21 SPO2 98%. DIMINISHED BS.
[2019-04-23 08:38] VITALS: BP 146/77; PULSE 77
[2019-04-23 09:06] LABS: MEAN CELL VOLUME 90 fl (80.0-100.0); MEAN CORPUSCULAR HGB CONC 31 g/dl (33.0-37.0); MEAN PLATELET VOLUME 8.8 fl (7.4-10.4); PLATELET COUNT 203 K/mm3 (130-400); RED BLOOD COUNT 2.82 M/mm3 (4.20-5.60); REDCELL DISTRIBUTION WIDTH-CV 16.3 % (11.5-14.5)
[2019-04-23 09:14] LABS: HEMATOCRIT 25.3 % (42.0-52.0); HEMOGLOBIN 7.8 g/dl (13.5-18.0); MEAN CORPUSCULAR HEMOGLOBIN 28 pg (27.0-31.0)
[2019-04-23 09:18] LABS: CREATININE, serum 3.48 (0.66-1.25); POTASSIUM 4.6 mmol/L (3.4-5.0)
[2019-04-23 09:29] LABS: BAND 5 % (0-10); LYMPHOCYTE 13 % (20.0-51.0); NEUTROPHILS 77 % (42.0-75.2); PLATELET ESTIMATE NORMAL (NORMAL)
[2019-04-23 11:33] VITALS: BP 135/70; PULSE 60; TEMP 98.1
[2019-04-23 16:55] VITALS: BP 115/97; PULSE 80; TEMP 98.9
[2019-04-23 20:12] VITALS: BP 156/73; PULSE 82; TEMP 97.5
--- NOTE | 2019-04-23 21:50 | NUR ---
Pt resting in bed. HOB elevated. No distress noted. Pt denies pain at this time. Respirations even and unlabored. Lungs clear to auscultation. BiPAP in place. Well tolerated by patient. Abdomen distended. BS+. Pt is voiding in urinal- output clear, brent. 2+ pitting edema to BLE. Pedal pulses equal bilaterally-1+. R foot wound covered with guaze wrap- clean, dry and intact. ASIM PICC line flushes appropriately. Pt denies needs at this time. Will contineu to monitor.
[2019-04-24 00:28] VITALS: BP 146/74; PULSE 68; TEMP 98.5
--- NOTE | 2019-04-24 03:00 | NUR ---
Pt sleeping with HOB elevated. BiPAP in place. No acute distress noted. IV Abx started. No needs noted.
[2019-04-24 04:16] VITALS: BP 146/75; PULSE 63; TEMP 98.3
[2019-04-24 05:47] LABS: BASO % 0.5 % (0.0-2.0); EOS # 0.3 (0.0-0.7); EOS % 3.8 % (0-4.0); GRAN # 5.6 (1.4-6.5); GRAN % 74.9 % (42.2-75.2); LYMPH # 1.1 (1.2-3.4); LYMPH % 14.3 % (20.0-51.0); MEAN CELL VOLUME 89 fl (80.0-100.0); MEAN CORPUSCULAR HGB CONC 32 g/dl (33.0-37.0); MONO # 0.5 (0.1-0.6); MONO % 6.1 % (1.7-9.3); PLATELET COUNT 198 K/mm3 (130-400); RED BLOOD COUNT 2.61 M/mm3 (4.20-5.60); REDCELL DISTRIBUTION WIDTH-CV 16.7 % (11.5-14.5)
[2019-04-24 05:55] LABS: HEMATOCRIT 23.1 % (42.0-52.0); HEMOGLOBIN 7.4 g/dl (13.5-18.0); MEAN CORPUSCULAR HEMOGLOBIN 28 pg (27.0-31.0)
[2019-04-24 05:56] LABS: CALCIUM 7.7 mg/dL (8.4-10.2); CREATININE, serum 3.39 (0.66-1.25); POTASSIUM 4.4 mmol/L (3.4-5.0)
--- NOTE | 2019-04-24 06:00 | NUR ---
Pt sleeping this AM. Awoken to reposition in bed. BiPAP in place. VSS have been stable throughout the night. Pt has denied pain. No episodes of acute distress. Pt denies complaints.
--- NOTE | 2019-04-24 06:45 | NUR ---
Pt called to bed taken off biPAP. BiPAP removed and O2@5L via NC placed on patient. No further needs noted.
--- NOTE | 2019-04-24 07:21 | NUR ---
PT WANTED TO SIT UP OH SIDE OF BED. SPO2 DROPPED INTO 70S, O2 TURNED UP TO 10 LPM TO ALLOW RECOVERY. LEFT ON 8 LPM TO MAINTAIN SPO2 91-92%
--- NOTE | 2019-04-24 08:00 | NUR ---
Assessment completed, alert/oriented, vital signs stable, reuquring, 5-8L o2 to keep sats above 90%, he feels his breathing is better today after having had 1000cc removed off his right lung yesterday by , lung sounds have some fine crackles/ more on right than left/ bases diminished, heart RRR, BLE edema 2-3 +, distal pulses are weak/ right foot dressed and unable to assess pulse, right foot in dressing/ drainage noted/ will change dressing today per order, blood sugars controlled, in at this time to see patient/ no new orders at this time/ he discussed possible pleurex drain in near future, patients son is present in the room, patient denies other needs at this time
--- NOTE | 2019-04-24 08:35 | NUR ---
PICC intact right upper arm. With sterile technique right upper arm PICC dressing change done with insertion site cleansed with ChloraPrep 1, skin prep, StatLock, chlorhexidine impregnated disc applied, and Tegaderm applied. No signs or symptoms of IV complications noted. No concerns voiced arm wrapped with Tacho to protect catheter.
[2019-04-24 08:58] VITALS: BP 142/77; PULSE 69; TEMP 98.1
[2019-04-24 11:54] VITALS: BP 150/80; PULSE 70; TEMP 97.4
--- NOTE | 2019-04-24 14:01 | NUR ---
ROBERTO met with patient to follow up about [facility]. Patient reports that he is agreeable to going and his family is as well. ROBERTO left a message for Safia with [facility] to inquire if they are able to accept patient. ROBERTO also faxed updates.
[2019-04-24 17:34] VITALS: BP 155/83; PULSE 85; TEMP 97.9
--- NOTE | 2019-04-24 19:10 | NUR ---
Pt resting with HOB elevated. Seems to be in good spirits this evening. He answers questions appropriately and is alert and oriented. Denies any pain at this time. No acute distress noted. Respirations are even and unlabored at this time, but pt reports experiencing dyspnea on exertion. Fine crackles present in right lung casas. Bilateral bases diminished. Spo2 is 91-92% on 8L via NC. Abdomen is rounded, but soft/ nontender. BS+. Pt is voiding clear yellow urine in urinal. Output is good. 2+ pitting edema to BLE. 3+ edema noted to R foot. R foot wounds covered with telfa, guaze and rk wrap. No drainage noted. No pedal pulse detected in R foot. Pt denies needs at this time. Will continnue to monitor.
--- NOTE | 2019-04-24 21:00 | NUR ---
Pt sleeping with BiPAP in place. Easily arousable. Pts blood pressure is elevate. HS blood pressure medications given. Will reassess at midnight to check for neccessity for PRN BP meds. No needs noted.
[2019-04-24 21:04] VITALS: BP 164/74; PULSE 81; TEMP 98.7
[2019-04-25] VITALS (12 sets, daily range): BP systolic 127–165; BP diastolic 57–89; PULSE 65–94; TEMP 97.8–99.2
--- NOTE | 2019-04-25 05:30 | NUR ---
Pt sleeping this morning. No distress noted. VSS. Pts Spo2 currently 100% on BiPAP. Unable to draw blood from R arm PICC today. The purple port flushes, but does not given blood return. The red port does not flush or give blood return. Pt has been SR on telemetry. No needs noted.
[2019-04-25 06:43] LABS: BASO % 0.4 % (0.0-2.0); EOS # 0.3 (0.0-0.7); EOS % 3.6 % (0-4.0); GRAN # 5.9 (1.4-6.5); GRAN % 75.9 % (42.2-75.2); LYMPH % 12.9 % (20.0-51.0); MEAN CELL VOLUME 89 fl (80.0-100.0); MEAN CORPUSCULAR HGB CONC 32 g/dl (33.0-37.0); MONO # 0.5 (0.1-0.6); MONO % 6.7 % (1.7-9.3); PLATELET COUNT 231 K/mm3 (130-400); RED BLOOD COUNT 2.52 M/mm3 (4.20-5.60); REDCELL DISTRIBUTION WIDTH-CV 17.1 % (11.5-14.5)
[2019-04-25 06:50] LABS: HEMATOCRIT 22.5 % (42.0-52.0); HEMOGLOBIN 7.1 g/dl (13.5-18.0); MEAN CORPUSCULAR HEMOGLOBIN 28 pg (27.0-31.0)
[2019-04-25 06:51] LABS: CALCIUM 7.8 mg/dL (8.4-10.2); CREATININE, serum 3.17 (0.66-1.25); MAGNESIUM 2.2 mg/dL (1.6-2.3); POTASSIUM 4.2 mmol/L (3.4-5.0)
--- NOTE | 2019-04-25 09:00 | NUR ---
Initial assessment completed. The patient was assisted with a bed bath and linen change at this time. No pain or needs voiced. The call light is in place and OT here to assist with oral hygiene.
--- NOTE | 2019-04-25 13:37 | NUR ---
ROBERTO attended clinical rounds. We are waiting for [facility] to officially accept patient. SW faxed updates to [facility] and left a message for Safia from [facility] explaining that doctor would like to see patient discharged to LTAC by Wednesday.
--- NOTE | 2019-04-25 13:46 | NUR ---
Report given to KAYLEE Max to resume care.
--- NOTE | 2019-04-25 15:46 | NUR ---
BLOOD TRANSFUSION STARTED. CONSENT SIGNED. PROTOCOL FOLLOWED. PICC RT ARM CDI, FLUIDS INFUSING. PATIENT TOLERATING WELL. NURSE AT THE BEDSIDE. CALL LIGHT WITHIN REACH. WILL CONTINUE TO MONITOR
--- NOTE | 2019-04-25 15:50 | NUR ---
ROBERTO attempted to contact Safia from [facility]. ROBERTO left another message.
--- NOTE | 2019-04-25 18:03 | NUR ---
Transfusion complete. Patient tolerate well. VS stable. PICC CDI. No further needs identified at this time. Call light within reach. Will continue to monitor.
--- NOTE | 2019-04-25 18:10 | NUR ---
Patient had uneventful day. VS stable. 7L O2 NC. No reported SOB. PICC red port not flushing at beginning of shift. Sabra PAGE AIV assessed and power flushed. Red port now flushing without difficulty. Patient received 1 unit of blood. Tolerated well. Resting in bed at this time. No further needs identified at this time. Call light within reach, contact precautions in place. Will continue to monitor.
--- NOTE | 2019-04-25 21:08 | NUR ---
PATIENT SITTING UP ON SIDE OF BED FINISHING SUPPER AT TIME OF VISIT. ASSESSMENT COMPLETED. DENIES C/O OF SHORTNESS OF BREATHE OR CHEST PAIN. A/O X 4. ATTITUDE CALM AND PLEASANT. DENIES NEEDS OR COMPLAINTS.
[2019-04-26 05:03] VITALS: BP 148/80; PULSE 57; TEMP 98.6
[2019-04-26 06:29] LABS: BASO % 0.3 % (0.0-2.0); EOS # 0.3 (0.0-0.7); EOS % 3.6 % (0-4.0); GRAN # 5.7 (1.4-6.5); GRAN % 75.4 % (42.2-75.2); LYMPH % 13.4 % (20.0-51.0); MEAN CELL VOLUME 90 fl (80.0-100.0); MEAN CORPUSCULAR HGB CONC 31 g/dl (33.0-37.0); MONO # 0.5 (0.1-0.6); MONO % 6.9 % (1.7-9.3); PLATELET COUNT 230 K/mm3 (130-400); RED BLOOD COUNT 2.73 M/mm3 (4.20-5.60); REDCELL DISTRIBUTION WIDTH-CV 16.6 % (11.5-14.5)
[2019-04-26 06:38] LABS: CALCIUM 7.7 mg/dL (8.4-10.2); CREATININE, serum 3.48 (0.66-1.25)
[2019-04-26 06:50] LABS: HEMATOCRIT 24.5 % (42.0-52.0); HEMOGLOBIN 7.7 g/dl (13.5-18.0); MEAN CORPUSCULAR HEMOGLOBIN 28 pg (27.0-31.0)
[2019-04-26 07:32] VITALS: TEMP 97.8
[2019-04-26 07:36] VITALS: BP 134/74; PULSE 70; TEMP 97.8
--- NOTE | 2019-04-26 08:20 | NUR ---
ROBERTO rec'd a voicemail from [facility]. She reports patient is not accepted due to "admission criteria." ROBERTO will speak to patient about other LTAC options.
--- NOTE | 2019-04-26 09:01 | NUR ---
SW met with patient about [facility] not accepting patient. SW reported that there are other LTAC options in [place] and [place]. Patient and daughter would like to speak with patient's brother before making a decison. SW asked for patient to let SW know their decision as soon as possible so SW can fax a referral.
--- NOTE | 2019-04-26 10:20 | NUR ---
ROBERTO spoke with patient's son about LTAC options since [facility] was unable to accept patient. Patient's son is agreeable to ROBERTO faxing a referral to [facility]. ROBERTO transferred the call to patient's room in order for patient's son, SW and patient to talk about other options. After speaking with patient's son and ROBERTO, patient is agreeable to ROBERTO faxing a referral to [facility] in [place]. ROBERTO will fax referral and contact
[2019-04-26 11:21] VITALS: BP 137/72; PULSE 69; TEMP 97.9
--- NOTE | 2019-04-26 14:13 | NUR ---
ROBERTO spoke to Andrea from [facility]. Andrea reports that the [facility] is currently full but there is a [facility] in [place], [place] that will likely be able to accept patient. ROBERTO contacted patient's son about this. He reports that he is agreeable to patient going to the [facility] in [place], [place] and that patient has childhood friends in that area who would be able to visit patient. ROBERTO also spoke with patient and he is agreeable to [facility] in [place].
[2019-04-26 14:48] LABS: URINE PROTEIN:CREAT RATIO 8.57 (0.00-0.14)
--- NOTE | 2019-04-26 15:36 | NUR ---
ROBERTO spoke to Andrea from [facility]. He reports patient was accepted to [facility] in [place], [place] and the are able to admit patient tomorrow. ROBERTO informed patient's son about acceptance. Patient's son reports he will inform patient's sister. ROBERTO also informed doctor. ROBERTO will arrange EMS transportation for 10am tomorrow (04/27).
[2019-04-26 16:03] VITALS: BP 152/83; PULSE 81; TEMP 95.5
--- NOTE | 2019-04-26 18:19 | NUR ---
PT HAD UNEVENFUL DAY. HAS NEEDED O2 BUMPED UP A COUPLE TIMES LATER THIS SHIFT. CURRENTLY ON 7L HIGH FLOW VIA NC. WAS PREVIOUSLY IN EALIER DAY WAS ON 5L. NO C/O PAIN HAS BEEN UP IN RECLINER MOST OF DAY. WORKED WITH PT/OT TODAY. NO ISSUES OR CONSERNS VOICED THIS SHIFT
[2019-04-26 19:02] VITALS: BP 149/76; PULSE 97; TEMP 98.4
--- NOTE | 2019-04-26 21:55 | NUR ---
Resting in bed. Assessment complete. Left lung base absent sounds, otherwise lungs clear. Patient currently on cpap. Heart sounds normal. Bowels active x4. Pulses present throughout. Bilateral lower leg edema +3. Right lower extremity wound covered with dressing. Dressing CDI at this time. Patient blood sugar 94. Patient stated he did not receive dinner tray ordered. Provided with food at this time. Denies pain. Denies other needs. Call light in reach.
[2019-04-27 00:40] VITALS: BP 145/78; PULSE 71; TEMP 98.4
--- NOTE | 2019-04-27 01:00 | NUR ---
Resting in bed. Denies needs. Call light in reach.
[2019-04-27 03:45] VITALS: BP 123/67; PULSE 57; TEMP 97.6
--- NOTE | 2019-04-27 03:50 | NUR ---
Resting in bed. Denies needs. Call light in reach.
--- NOTE | 2019-04-27 05:34 | NUR ---
Patient resting in bed this AM. Had uneventful night. Daughter visited with patient last night. Denies needs this AM. Call light in reach.
[2019-04-27 07:07] VITALS: BP 134/70; PULSE 64; TEMP 98.7
--- NOTE | 2019-04-27 09:15 | NUR ---
ROBERTO attended clinical rounds. Patient will discharge to [facility] in [place], [place]. EMS will transport patient at 10am. SW presented IM to patient. He signed and was provided a copy. ROBERTO faxed discharge orders. ROBERTO also contacted patient's son to inform himof discharge.
--- NOTE | 2019-04-27 09:50 | NUR ---
EMS HERE TO TRANSFER PT TO [facility] [place]. REPORT GIVEN TO EMS PROVIDERS. PAPERWORK GATHERED AND IN FOLDER GIVEN TO EMS TEAM. PT DRESSED AND PT BELONGINGS GATHERED.
--- NOTE | 2019-04-27 10:10 | NUR ---
EMS TEAM HAS PATIENT ON GURNEY AND LEAVING FACIILITY AT THIS TIME. OUTSIDE CONTRACTOR SALES ASSISTED EMS TEAM OUT OF FACIITLIY TO TAKE PT BELONGINGS TO AMBULANCE. PT EXPERINCED SOME SOB WHEN TRANSFERING TO [facility] BUT STATED HE WAS "OKAY"
--- NOTE | 2019-04-27 10:15 | NUR ---
THIS NURSE ATTEMPTED TO CALL REPORT TO [facility] IN [place], THE NURSE ANSWERING PHONE ASKED TO BE CALLED BACK IN ABOUT 20 MINS. THIS NURSE WILL REATTEMPT TO CALL FACILITY AT LATER TIME.
--- NOTE | 2019-04-27 12:00 | NUR ---
REPORT GIVEN TO NURSE TAKING PT AT [facility]. ALL QUESTIONS WHERE ANSWERED. INFORMED NURSE OF TIME EMS LEFT HOSPITAL.
== END 2019-04-27 10:15 | DRG 291 ==
LOC: COL.ER 21:14 → MEDICAL 23:30 → ICU 23:30 → MEDICAL 04-10 13:22 → ICU 04-14 17:07 → MEDICAL 04-18 17:52 → ICU 04-20 11:43 → MEDICAL 04-21 17:45
PROVIDERS: Emergency Medicine; Hospitalist; Internal Medicine; Internal Medicine Critical Care Medicine; Internal Medicine Pulmonary Disease; Nurse Practitioner Family; Physician Assistant; Radiology Diagnostic Radiology; ADMIT Internal Medicine
PROC: 02HV33Z Insertion of Infusion Device into Superior Vena Cava, Percutaneous Approach (ICD-10-PCS; 2019-04-10)
PROC: 0W9B3ZZ Drainage of Left Pleural Cavity, Percutaneous Approach (ICD-10-PCS; principal; 2019-04-18)
PROC: 0W9B3ZZ Drainage of Left Pleural Cavity, Percutaneous Approach (ICD-10-PCS; 2019-04-22)
DX: I13.0 Hypertensive heart and chronic kidney disease with heart failure and stage 1 through stage 4 chronic kidney disease, or unspecified chronic kidney disease (principal); J96.01 Acute respiratory failure with hypoxia; I50.33 Acute on chronic diastolic (congestive) heart failure; J18.1 Lobar pneumonia, unspecified organism; N17.9 Acute kidney failure, unspecified; Z68.41 Body mass index [BMI] 40.0-44.9, adult; E87.3 Alkalosis; E87.2 Acidosis; T84.59XA Infection and inflammatory reaction due to other internal joint prosthesis, initial encounter; J90 Pleural effusion, not elsewhere classified; N18.4 Chronic kidney disease, stage 4 (severe); M86.9 Osteomyelitis, unspecified; D63.1 Anemia in chronic kidney disease; E66.01 Morbid (severe) obesity due to excess calories; G47.33 Obstructive sleep apnea (adult) (pediatric); I08.1 Rheumatic disorders of both mitral and tricuspid valves; I27.20 Pulmonary hypertension, unspecified; E83.39 Other disorders of phosphorus metabolism; E11.69 Type 2 diabetes mellitus with other specified complication; N18.9 Chronic kidney disease, unspecified; E11.22 Type 2 diabetes mellitus with diabetic chronic kidney disease; E11.65 Type 2 diabetes mellitus with hyperglycemia; E11.621 Type 2 diabetes mellitus with foot ulcer; L97.519 Non-pressure chronic ulcer of other part of right foot with unspecified severity; R53.81 Other malaise; D47.3 Essential (hemorrhagic) thrombocythemia; Z79.4 Long term (current) use of insulin; Z79.82 Long term (current) use of aspirin; Z99.81 Dependence on supplemental oxygen; Z86.711 Personal history of pulmonary embolism; Z86.14 Personal history of Methicillin resistant Staphylococcus aureus infection
CPT/HCPCS: 99222; 99231-AI; 99232-AI; 99233-AI; 99239; A4216; A4314; A9540; A9567; C1751; J0360; J0881; J1644; J1815; J1940; J2020; J2185; J2543; J2916; J2997; J7050; P9016